=== PATIENT | female | born 1955 | race Caucasian/White ===

== ENCOUNTER 2020-01-06 11:19 | Observation (INO) | payer MEDICARE ==
[~2020-01-06] VITALS: Ht 167.6 cm; Wt 141.4 kg
[2020-01-06] VITALS (7 sets, daily range): BP systolic 146–186; BP diastolic 71–96
[2020-01-06] MEDS ORDERED: SYNTHROID25 MCG PO (11:25)
[2020-01-06] MEDS ORDERED: LISINOPRIL10 MG PO (11:26)
[2020-01-06] MEDS ORDERED: LIPITOR20 MG PO (11:26)
[2020-01-06] MEDS ORDERED: LISINOPRIL-HCT1 EAC7 PO (11:26)
--- NOTE | 2020-01-06 12:43 | NUR ---
DR. HAND NOTIFIED AND REVIEWED PTS BEHAVIOR AND ASSESSMENT RESULTS. PT IS A MODERATE RISK PER DR. HAND. DR. HAND STATED TO GIVE RESOURCES TO PT AT TIME OF DISCHARGE. NO FURTHER ORDERS AT THIS TIME. RESOURCES REVIWED WITH PT AND SHE VERBALIZIED UNDERSTANDING.
--- NOTE | 2020-01-06 13:03 | NUR ---
URINE SPEC COLLECTED, LABELED AT BS AND SENT TO LAB
[2020-01-06 13:08] LABS: MCH 28.7 pg (26.0-34.0); MCV 89.8 fL (80.0-100.0); MEAN PLATELET VOLUME 9.1 fL (7.4-10.4); PLATELET COUNT 85 10x3/uL (130-400); RDW 18.2 % (11.5-14.5)
[2020-01-06 13:14] LABS: HEMOGLOBIN 4.8 g/dL (12-16); RBC 1.67 10x6/uL (4.00-5.40); WBC 1.4 10x3/uL (4.8-10.8)
[2020-01-06 13:22] LABS: CALC OSMOLALITY 283 mosm/kg (275-300); CALCIUM 8.9 mg/dL (8.5-10.1); CARBON DIOXIDE 28.8 mmol/L (21.0-32.0); CHLORIDE - SERUM 106 mmol/L (98-107); GLUCOSE 116 mg/dL (74-106); POTASSIUM - SERUM 3.6 mmol/L (3.5-5.1); SODIUM 142 mmol/L (136-145); UREA NITROGEN 13 mg/dL (7-18); eGFR NON AFRICAN AMERICAN 59 mL/min (90-120)
--- NOTE | 2020-01-06 13:30 | NUR ---
BLOOD TRANSFUSION PROCEDURE EXPL TO PT, VERB UNDER, CONSENT SIGNED AND WITNESSED
[2020-01-06 13:31] LABS: APTT 30.5 SECONDS (22.8-39.4); INR 1.04 (0.85-1.17); PROTIME 13.6 SECONDS (11.6-15.0)
[2020-01-06 13:35] LABS: D-DIMER-QUANTITATIVE 2.25 ug/mLFEU (0.20-0.54)
[2020-01-06 13:49] LABS: BILIRUBIN NEGATIVE (NEGATIVE); GLUCOSE NEGATIVE (NEGATIVE); KETONE NEGATIVE (NEGATIVE); NITRITE NEGATIVE (NEGATIVE); UROBILINOGEN NORMAL (NORMAL)
--- NOTE | 2020-01-06 13:49 | NUR ---
QUAIC STOOL NEGATIVE, MARIA T LANDA NOTIFIED
[2020-01-06 13:54] LABS: ALKALINE PHOSPHATASE 59 U/L (30-120); ALT (SGPT) 40 U/L (10-68); BILIRUBIN - TOTAL 0.83 mg/dL (0.2-1.3); CKMB 1.2 U/L (0.0-3.6); CREATINE KINASE 78 UL (21-215); PRO BNP 181 pg/mL (0-125); PROTEIN - SERUM 7.1 g/dL (6.4-8.2)
[2020-01-06 13:56] LABS: TROPONIN-I < 0.017 ng/mL (0.000-0.060)
--- NOTE | 2020-01-06 14:00 | NUR ---
BLOOD TRANSFUSION INITIATED, SEE PAPER CHARTING
[2020-01-06 14:09] LABS: HYPOCHROMASIA OCC; LYMPHOCYTES 46 % (15-50); MONOCYTES 4 % (2-11); NEUTROPHILS 34 % (40-80); PLATELET ESTIMATE DECREASED; ROULEAUX OCC
--- NOTE | 2020-01-06 16:00 | NUR ---
SPOKE WTMARGARITA LANDA APN RE: ORDER FOR LASIX BTW BLOOD UNITS. INSTR TO ADMIN ORDERED LASIX AFTER 2ND UNIT
--- NOTE | 2020-01-06 16:51 | NUR ---
1ST UNIT PRBC'S COMPLETED, PT MYLES WELL . 2ND UNIT STARTED.
--- NOTE | 2020-01-06 17:05 | NUR ---
INTERVENTIONAL RADIOLOGY NURSE'S NOTE DISCUSSED CONSULT WITH DR. FRANZ. BONE MARROW BIOPSY SAMPLES MUST BE COMPLETED BY 1400 ON A WEEKDAY. WILL SCHEDULE FOR EITHER THURSDAY OR THURSDAY OF NEXT WEEK JULIANA MIDDLETON RN
--- NOTE | 2020-01-06 18:02 | NUR ---
REPORT TO BRENDEN ALEXANDRA
--- NOTE | 2020-01-06 18:45 | NUR ---
ADMIT TO ROOM #[id number] CONDITON STABLE
--- NOTE | 2020-01-06 18:47 | NUR ---
PT IN ROOM, SITUATED COMFORTABLY. DENIES ANY NEEDS.
--- NOTE | 2020-01-06 23:00 | NUR ---
3RD UNIT COMPLETED. 4TH UNIT PRBC STARTED WITH NO REACTIONS NOTED. UP AD MIRNA IN ROOM
[2020-01-07 01:26] VITALS: BMI 50.3
--- NOTE | 2020-01-07 03:01 | NUR ---
3RD UNIT PRBC STARTED WITH NO REACTIONS NOTED. RESP UNALBORED.
--- NOTE | 2020-01-07 03:06 | NUR ---
4TH UNIT PRBC COMPLETED WITH NO REACITONS NOTED. CL IN REACH
[2020-01-07 04:00] VITALS: BP 187/100
[2020-01-07 06:19] LABS: BASOPHILS 0.7 % (0-2); EOSINOPHILS 1.3 % (0-7); IMMATURE GRANULOCYTES 2.6 % (0-5); LYMPHOCYTES 57.5 % (15-50); MCH 29.3 pg (26.0-34.0); MCHC 33.2 g/dL (31.0-37.0); MCV 88.2 fL (80.0-100.0); MEAN PLATELET VOLUME 9.2 fL (7.4-10.4); MONOCYTES 0.7 % (2-11); NEUTROPHILS 37.2 % (40-80); PLATELET COUNT 71 10x3/uL (130-400); RDW 16.4 % (11.5-14.5)
[2020-01-07 06:47] LABS: HEMATOCRIT 24.7 % (36.0-48.0); HEMOGLOBIN 8.2 g/dL (12-16); WBC 1.5 10x3/uL (4.8-10.8)
[2020-01-07 09:07] VITALS: Ht 167.6 cm; Wt 141.4 kg
[2020-01-07 09:30] VITALS: BP 196/106
[2020-01-07] MEDS ORDERED: CATAPRES0.1 MG PO (09:56)
[2020-01-07] MEDS ORDERED: CYANOCOBAL1000 MCG/4 SC (09:57)
[2020-01-07 10:46] LABS: ALBUMIN 3.7 g/dL (3.4-5.0); ANION GAP 14.3 mmol/L (8-16); BILIRUBIN - TOTAL 1.78 mg/dL (0.2-1.3); CALCIUM 8.1 mg/dL (8.5-10.1); CARBON DIOXIDE 26.4 mmol/L (21.0-32.0); CREATININE - SERUM 0.9 mg/dL (0.6-1.3); POTASSIUM - SERUM 3.7 mmol/L (3.5-5.1); PROTEIN - SERUM 6.2 g/dL (6.4-8.2)
--- NOTE | 2020-01-07 15:13 | NUR ---
DISCHARGE PAPERWORK SIGNED, ALL QUESTIONS ANSWERED. IV TO RIGHT HAND AND RIGHT AC, SALINE LOCKED. PT REQUESTED TO AMBULATE OUT.
== END 2020-01-07 15:17 | disposition home or self-care (01) ==
LOC: D.ER 11:19 → D.MS 15:12 → OBSVTIME 17:00 → D.MS 01-07 15:17
PROVIDERS: Family Medicine; ADMIT Family Medicine Adult Medicine; ATTEND Family Medicine Adult Medicine
DX: D64.9 Anemia, unspecified (principal); R79.89 Other specified abnormal findings of blood chemistry; D70.9 Neutropenia, unspecified; R06.02 Shortness of breath; R42 Dizziness and giddiness; R53.1 Weakness; I10 Essential (primary) hypertension; E78.5 Hyperlipidemia, unspecified; E03.9 Hypothyroidism, unspecified; K21.9 Gastro-esophageal reflux disease without esophagitis

== ENCOUNTER 2020-02-02 07:58 | Day surgery (SDC) | payer MEDICARE ==
[~2020-02-02] VITALS: Ht 167.6 cm; Wt 141.1 kg
--- NOTE | ~2020-02-02 | OP ---
PATIENT NAME: COLE CAMPOS MEDICAL RECORD: [id number] :53 LOCATION:D.OPS ADMISSION DATE: SURGEON: HERLINDA PAGE MD DATE OF OPERATION: 02/02/2020 PREOPERATIVE DIAGNOSES: 1. Leukemia. 2. Hypertension. POSTOPERATIVE DIAGNOSES: 1. Leukemia. 2. Hypertension. PROCEDURE: 1. Left subclavian vein PowerPort placement. 2. Fluoroscopic interpretation. SURGEON: Herlinda Page MD REPORT OF PROCEDURE: The patient's left chest was prepped and draped in sterile fashion. A needle was used to cannulate the left subclavian vein and a guidewire was advanced with ease. Fluoro was used to note that the wire was in good position in the venous system. A skin incision was made on the left superolateral chest and a subcutaneous pouch was made over the pectoral fascia. The catheter was tunneled between this pouch and the wire exit site. The catheter was then sutured to the pectoral fascia with interrupted 2-0 Prolenes times 2. The catheter was cut with a beveled tip at 29 cm. The dilator trocar device was placed over the wire and the wire and dilator were removed. The catheter tip was advanced through the trocar and the trocar was then removed. The catheter tip was noted to be resting in good position in the superior vena cava. The catheter aspirated nonpulsatile dark blood and flushed easily with heparinized saline. The subcutaneous tissues were reapproximated with interrupted 3-0 Vicryl and the skin was closed with running subcutaneous 5-0 Monocryl. We then accessed the port and flushed it one last time and a dressing was applied. COMPLICATIONS: None. CONDITION: Stable. ANESTHESIA: General endotracheal. BLOOD LOSS: Minimal. NTS:[id number] Voice Confirmation ID: [id number] DOCUMENT ID: [id number] HERLINDA PAGE MD CC: STEHPANI NOEL MD [id number] DICTATION DATE: 02/02/20 1318 PROGRAM CONSULTANT: 02/02/201903 [facility] 02/02/20 [facility] [address] [place] [address]
[~2020-02-02 07:58] MED LIST: CATAPRES0.1 MG PO; CYANOCOBAL1000 MCG/4 SC; LIPITOR20 MG PO; LISINOPRIL-HCT1 EAC7 PO; LISINOPRIL10 MG PO; SYNTHROID25 MCG PO
[2020-02-02 08:40] LABS: HEMATOCRIT 21.1 % (36.0-48.0); MCH 28.4 pg (26.0-34.0); MCHC 32.7 g/dL (31.0-37.0); MCV 86.8 fL (80.0-100.0); PLATELET COUNT 80 10x3/uL (130-400); RBC 2.43 10x6/uL (4.00-5.40); RDW 15.3 % (11.5-14.5)
[2020-02-02 08:45] LABS: APTT 23.5 SECONDS (22.8-39.4); INR 0.97 (0.85-1.17); PROTIME 12.8 SECONDS (11.6-15.0)
[2020-02-02 08:53] LABS: HEMOGLOBIN 6.9 g/dL (12-16); WBC 1.6 10x3/uL (4.8-10.8)
[2020-02-02 09:54] VITALS: BP 171/98; Ht 167.6 cm; Wt 141.1 kg
[2020-02-02] MEDS ORDERED: HYDROCODON-ACE1 EA10 PO (13:14)
[2020-02-02 13:49] LABS: ANISOCYTOSIS OCC; LYMPHOCYTES 46 % (15-50); MONOCYTES 4 % (2-11); NEUTROPHILS 42 % (40-80); PLATELET ESTIMATE DECREASED; POLYCHROMASIA OCC; ROULEAUX OCC
--- NOTE | 2020-02-02 16:03 | NUR ---
1445 PT HAS MET DISCHARGE CRITERIA FROM SURGICAL STANDPOINT BUT IS TO GET 2 UNITS OF PRBC'S PRIOR TO DISCHARGE HOME. 1605 PT HAS TOLERATED FIRST UNIT OF PRBC'S. NO C/O CP, RASH, OR SOB.
--- NOTE | 2020-02-02 18:22 | NUR ---
1745 DR PAGE CALLED ABOUT RX ON MED REC. DOCTOR FORGOT TO SIGN RX. PT NOT HAVING ANY PAIN AT THID TIME. ORDERED TO FLUSH AND REMOVE NEEDLE TO PORT AND REDRESS. 175 BLOOD FINISHED AND IV REMOVED TO LEFT ARM
== END 2020-02-02 18:25 | disposition home or self-care (01) ==
LOC: D.OPS 07:58 → D.PAN 09:30 → D.OPS 10:30 → D.PAN 10:30 → D.OPS 18:25
PROVIDERS: Anesthesiology; ATTEND Surgery
DX: C91.90 Lymphoid leukemia, unspecified not having achieved remission (principal); I10 Essential (primary) hypertension

== ENCOUNTER 2020-02-24 15:10 | Outpatient (CLI) | payer MEDICARE ==
[2020-02-02 09:54] VITALS: BMI 50.3
[~2020-02-24 15:10] MED LIST changes: +HYDROCODON-ACE1 EA10 PO
--- NOTE | 2020-02-24 19:01 | NUR ---
PRBC WILL NOT BE AVILABLE FOR UNTIL 8PM PER BLOOD BANK. SPOKE WITH ,Jose NOEL'S PARTNER VIA PHONE. OK TO LEAVE PTS POERPORT ACCESSES/FLUSHED AND SHE CAN COME TO ER TOMORROW TO RECEIVE PRBC'S.
== END 2020-02-24 18:40 ==
LOC: D.OPS 15:10
PROVIDERS: ATTEND Legal Medicine
DX: R79.1 Abnormal coagulation profile (principal); D58.9 Hereditary hemolytic anemia, unspecified; D64.9 Anemia, unspecified; D69.6 Thrombocytopenia, unspecified

== ENCOUNTER 2020-02-25 15:51 | Outpatient (CLI) | payer MEDICARE ==
[~2020-02-25] VITALS: Ht 167.6 cm; Wt 128.4 kg
--- NOTE | 2020-02-25 16:20 | NUR ---
PATIENT TO ROOM AT THIS TIME. PORT TO LEFT CHEST ALREADY ACCESSED FROM YESTERDAY. WAITING FOR BLOOD TO BE READY. CALL LIGHT WITHIN REACH.
--- NOTE | 2020-02-25 17:00 | NUR ---
CALLED LAB AND EXPLAINED PATIENT DOES NOT HAVE BLOOD BAND ON FROM YESTERDAY AND WILL NEED A NEW ONE. STATED PATIENT WOULD HAVE TO BE TYPED AND SCREENED Again TO RECIEVE BLOOD. EXPLAINED TO PATIENT. VERBALIZED UNDERSTANDING. CALL LIGHT WITHIN REACH.
--- NOTE | 2020-02-25 17:20 | NUR ---
SPOKE WITH MANDY IN LAB ABOUT T&S. STATED NEEDED A ORDER PLACED. ORDER FOR BLOOD IS PLACED AND CALLED EARLIER AND SPOKE WITH MANDY ABOUT BLOOD BAND. PATIENT WAITING FOR TRANSFUSION. CALL LIGHT WITHIN REACH.
[2020-02-25 17:49] VITALS: BP 177/94; Ht 167.6 cm; Wt 128.4 kg
--- NOTE | 2020-02-25 18:48 | NUR ---
PATIENT SITTING UP IN BED. TYPE AND SCREEN BEING DONE. NO COMPLAINTS OR SIGNS OF DISTRESS. CALL LIGHT WITHIN REACH.
--- NOTE | 2020-02-25 19:39 | NUR ---
RECEIVED CALL FROM LAB THAT BLOOD WAS READY. GAVE PRE-MEDS: BENADRYL 25 MG IVP, AND TYLENOL 500 MG PO.
[2020-02-25 20:00] VITALS: BP 152/83
--- NOTE | 2020-02-25 20:00 | NUR ---
STARTED 1ST UNIT OF PRBC'S. VITALS STABLE AND PT IS AFEBRILE.
[2020-02-25 20:15] VITALS: BP 167/82
--- NOTE | 2020-02-25 21:23 | NUR ---
PT C/O PORT ACHING. FLUSHES WELL WITH NO SWELLING. SLOWED INFUSION AND PLACED WARM COMPRESS TO AREA. WILL CONTINUE TO MONITOR CLOSLEY.
--- NOTE | 2020-02-25 22:16 | NUR ---
REMOVED VIDAL ACCESS TO INFUSAPORT PER PT REQUEST IT CONTINUED TO ACHE. PLACED PERIPHERAL IV TO RIGHT HAND USING 20 GUAGE IN ONE STICK. MOVED BLOOD TRANSFUSION TO RIGHT HAND IV.
--- NOTE | 2020-02-25 22:39 | NUR ---
PT REPORTS NO LONGER HAVING ACHING IN PORT AREA. TOLD TO CALL MD THURSDAY AM TO REPORT PROBLEMS WITH PORT.
[2020-02-25 23:50] VITALS: BP 149/72
--- NOTE | 2020-02-25 23:55 | NUR ---
2ND UNIT OF PRBC'S STARTED. VITALS STABLE AND PT IS AFEBRILE.
[2020-02-26 00:05] VITALS: BP 146/81
--- NOTE | 2020-02-26 02:30 | NUR ---
2ND UNIT OF PRBC'S COMPLETE AND LINE FLUSHING. VITALS REMAIN STABLE AND PT IS AFEBRILE.
[2020-02-26 02:55] VITALS: BP 142/79
--- NOTE | 2020-02-26 02:55 | NUR ---
REMOVED PERIPHERAL IV TO RIGHT HAND WITH CATHETER TIP INTACT. PRESSURE DRESSING APPLIED.
--- NOTE | 2020-02-26 03:00 | NUR ---
PT ESCORTED TO ER EXIT VIA WHEELCHAIR. PT INSTRUCTED TO CALL OR COME BACK TO ER IF ANY PROBLEM ARISES. WRITTEN INSTRUCTIONS GIVEN.
== END 2020-02-26 03:00 | disposition home or self-care (01) ==
LOC: D.OPS 15:51 → D.MS 15:52 → D.OPS 02-26 03:00
PROVIDERS: ATTEND Legal Medicine
DX: D64.9 Anemia, unspecified (principal)